=== PATIENT | male | born 1975 | race Caucasian/White ===

== ENCOUNTER 2016-09-04 11:23 | Emergency (ER) | payer BC ==
[~2016-09-04] VITALS: Ht 185.4 cm; Wt 79.4 kg
[2016-09-04 11:46] VITALS: BP 125/66
--- NOTE | 2016-09-04 12:12 | RAD ---
Indication: Left shoulder injury and pain. Time of exam 11:58 AM 3 views of the left shoulder were obtained. The glenohumeral and acromial clavicular alignment are normal. No fracture or dislocation is seen. Acromiohumeral space is normal. Impression: No acute abnormality is detected.
[2016-09-04] MEDS ORDERED: HYDR-971 PO (13:15)
--- NOTE | 2016-09-04 13:16 | PHYS DOC ---
Past Medical History Past Medical History: No Pertinent History Past Surgical History: Other Additional Past Surgical Histo: right shoulder Alcohol Use: None Drug Use: None Adult General Chief Complaint Chief Complaint: SHOULDER INJURY HPI HPI Patient is a 40 year old male presents emergency department stating that he has having left upper shoulder pain and discomfort. Patient states that his daughter had came down a slide at the great with [place] he tried to catch her and has arm went backwards, he states that he is having pain in the rotator cuff area. He states that he does have a orthopedic in which he has already attempted to notify for an appointment. Patient denies any numbness or tingling down to his lower extremities. Review of Systems Review of Systems Constitutional: Denies fever or chills [] Eyes: Denies change in visual acuity, redness, or eye pain [] HENT: Denies nasal congestion or sore throat [] Respiratory: Denies cough or shortness of breath [] Cardiovascular: No additional information not addressed in HPI [] GI: Denies abdominal pain, nausea, vomiting, bloody stools or diarrhea [] : Denies dysuria or hematuria [] Musculoskeletal: Denies back pain. Left shoulder pain and discomfort Integument: Denies rash or skin lesions [] Neurologic: Denies headache, focal weakness or sensory changes [] Endocrine: Denies polyuria or polydipsia [] Allergies Allergies Allergies Coded Allergies Type Severity Reaction Last Updated Verified No Known Drug Allergies 09/04/16 No Physical Exam Physical Exam Christopher rate Constitutional: Well developed, well nourished, no acute distress, non-toxic appearance. [] HENT: Normocephalic, atraumatic, bilateral external ears normal, oropharynx moist, no oral exudates, nose normal. [] Eyes: PERRLA, EOMI, conjunctiva normal, no discharge. [] Neck: Normal range of motion, no tenderness, supple, no stridor. [] Cardiovascular:Heart rate regular rhythm, no murmur [] Lungs & Thorax: Bilateral breath sounds clear to auscultation [] Skin: Warm, dry, no erythema, no rash. [] Back: No tenderness Extremities: Left rotator cuff area tenderness, no cyanosis, no clubbing, ROM intact, no edema. Patient with good sensation to bilateral arms that are equal. 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 Neurologic: Alert and oriented X 3, normal motor function, normal sensory function, no focal deficits noted. [] Psychologic: Affect normal, judgement normal, mood normal. [] Current Patient Data Vital Signs Vital Signs Date Time Temp Pulse Resp B/P (MAP) Pulse Ox O2 Delivery O2 Flow Rate FiO2 09/04/16 11:46 98.0 96 19 99 Room Air 98.0 EKG EKG [] Radiology/Procedures Radiology/Procedures [][facility] [address] [place] [address] IMAGING REPORT Signed PATIENT: NICK MONACO ACCOUNT: [id number] : 1975 LOCATION: ER AGE: 40 SEX: M EXAM STATUS: REG ER ORD. PHYSICIAN: ANTHONY STERLING APRN REASON: pain and discomfort questionable hyperextended PROCEDURE: SHOULDER 2+V LEFT Indication: Left shoulder injury and pain. Time of exam 11:58 AM 3 views of the left shoulder were obtained. The glenohumeral and acromial clavicular alignment are normal. No fracture or dislocation is seen. Acromiohumeral space is normal. Impression: No acute abnormality is detected. DICTATED and SIGNED BY: LAZ PAEZ MD DATE: 09/04/16 1209 CC: ANTHONY STERLING APRN; NON,STAFF ~ Course & Med Decision Making Course & Med Decision Making Pertinent Labs and Imaging studies reviewed. (See chart for details) X-rays were negative for any bony abnormalities. Patient will be provided with a sling. He has a 30 attempted to call his orthopedic for an appointment later in the week. Patient wasn't encouraged to use ibuprofen 800 mg every 8 hours with food. He'll be provided with a prescription for hydrocodone which he was stated as instructed that this medication will cause drowsiness. Patient was also recommended ice packs on 20 minutes off 20 minutes several times a day. Patient agrees with discharge instructions treatment regimens and follow-up recommendations. Patient was provided with a work note for the and Sunday abscess when he returns back to work. [] Dragon Disclaimer Dragon Disclaimer This electronic medical record was generated, in whole or in part, using a voice recognition dictation system. Departure Departure Impression: Primary Impression: Left shoulder pain Disposition: HOME, SELF-CARE Condition: STABLE Referrals: NON,STAFF (PCP) Patient Instructions: Arm Sling Use-Brief, Shoulder Pain, [id number] Additional Instructions: Your x-rays were negative for any bony abnormalities. Wear the sling to help with comfort. Ice packs on 20 minutes off 20 minutes several times a day. Ibuprofen 800 mg every 8 hours with food stop taking few develop an upset stomach. Hydrocodone will cause drowsiness do not take any be alert and oriented. Ice packs on 20 minutes off 20 minutes several times a day. Follow-up with your orthopedic in which she state you've artery tried to contact. Return back to emergency department sign symptoms become worse. Scripts Hydrocodone/Apap 5-325 (NORCO 5-325 TABLET) 1 Each Tablet 1 TAB PO PRN Q6HRS Y for PAIN, #20 TAB 0 Refills Prov: ANTHONY STERLING APRN 09/04/16 ANTHONY STERLING APRN Sep 04, 2016 13:16
[2016-09-04] MEDS ORDERED: HYDROcodone/APAP 5/325MG 1 TAB TABLET ONE (13:21)
[2016-09-04] MEDS ORDERED: HYDROcodone/APAP 5/325MG 1 TAB TABLET PO ONE ×2 (13:30)
== END 2016-09-04 13:25 | disposition home or self-care (01) ==
LOC: ER 11:23
DX: M25.512 Pain in left shoulder (principal); Z98.890 Other specified postprocedural states
CPT/HCPCS: 73030; 99284